=== PATIENT | female | born 1985 | race African-American/Black ===

== ENCOUNTER 2018-08-30 21:23 | Emergency (ER) | payer OTHER ==
--- OUTSIDE RECORDS SUMMARY | 2018-08-30 21:24 | XMS REPORT ---
:1985 [facility] Address [address] [place] [address] [address] [place] [address] Care Team Providers Name Role Phone Unavailable Unavailable Unavailable Problems This patient has no known problems. Allergies, Adverse Reactions, Alerts This patient has no known allergies or adverse reactions. Medications This patient has no known medications.
[2018-08-31] MEDS ORDERED: LIDOCAINE 1% MPF 2 ML AMPULE ONE (00:49)
[2018-08-31] MEDS ORDERED: ONDANSETRON 4 MG (ODT) TAB ONE (00:49)
[2018-08-31] MEDS ORDERED: CEFTRIAXONE 1000 MG/VIAL ONE (00:49)
--- NOTE | 2018-08-31 01:13 | EDPHYS ---
Physician Documentation [facility] Name: Breana Lanier Age: 33 yrs Sex: Female : 1985 Arrival Date: 08/30/2018 Time: 21:23 Bed 9 Private MD: ED Physician Kain Murrell HPI: 08/31 01:00 This 33 yrs old Black Female presents to ER via Ambulatory with complaints of Possible pm1 Dehydration. 01:00 The patient presents with urinary symptoms, dysuria. Onset: The symptoms/episode pm1 began/occurred 1 week(s) ago. Modifying factors: The symptoms are alleviated by nothing, the symptoms are aggravated by urinating. Severity of symptoms: in the emergency department the symptoms are unchanged. The patient has experienced similar episodes in the past, multiple times. The patient has been recently seen at an urgent care, today, for similar complaints, labs were performed, was given a prescription for antibiotics. Patient was seen at urgent care and told that she might be dehydrated, so she presented to the ER. patient able to eat and drink.. 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 - Social history:: Smoking status: Patient/guardian denies using tobacco. - Ebola Screening: : Patient negative for fever greater than or equal to 101.5 degrees Fahrenheit, and additional compatible Ebola Virus Disease symptoms Patient denies exposure to infectious person Patient denies travel to an Ebola-affected area in the 21 days before illness onset No symptoms or risks identified at this time. ROS: 08/31 01:00 Positive for urinary symptoms. pm1 Constitutional: Negative for fever, chills, and weight loss, Eyes: Negative for injury, pain, redness, and discharge, ENT: Negative for injury, pain, and discharge, Neck: Negative for injury, pain, and swelling, Cardiovascular: Negative for chest pain, palpitations, and edema, Respiratory: Negative for shortness of breath, cough, wheezing, and pleuritic chest pain, Abdomen/GI: Negative for abdominal pain, nausea, vomiting, diarrhea, and constipation, Back: Negative for injury and pain, MS/Extremity: Negative for injury and deformity, Skin: Negative for injury, rash, and discoloration, Neuro: Negative for headache, weakness, numbness, tingling, and seizure. Exam: 01:00 Constitutional: This is a well developed, well nourished patient who is awake, alert, pm1 and in no acute distress. Head/Face: Normocephalic, atraumatic. Eyes: Pupils equal round and reactive to light, extra-ocular motions intact. Lids and lashes normal. Conjunctiva and sclera are non-icteric and not injected. Cornea within normal limits. Periorbital areas with no swelling, redness, or edema. ENT: Nares patent. No nasal discharge, no septal abnormalities noted. Tympanic membranes are normal and external auditory canals are clear. Oropharynx with no redness, swelling, or masses, exudates, or evidence of obstruction, uvula midline. Mucous membranes moist. Neck: Trachea midline, no thyromegaly or masses palpated, and no cervical lymphadenopathy. Supple, full range of motion without nuchal rigidity, or vertebral point tenderness. No Meningismus. Chest/axilla: Normal chest wall appearance and motion. Nontender with no deformity. No lesions are appreciated. Cardiovascular: Regular rate and rhythm with a normal S1 and S2. No gallops, murmurs, or rubs. Normal PMI, no JVD. No pulse deficits. Respiratory: Lungs have equal breath sounds bilaterally, clear to auscultation and percussion. No rales, rhonchi or wheezes noted. No increased work of breathing, no retractions or nasal flaring. Abdomen/GI: Soft, non-tender, with normal bowel sounds. No distension or tympany. No guarding or rebound. No evidence of tenderness throughout. Back: No spinal tenderness. No costovertebral tenderness. Full range of motion. Skin: Warm, dry with normal turgor. Normal color with no rashes, no lesions, and no evidence of cellulitis. MS/ Extremity: Pulses equal, no cyanosis. Neurovascular intact. Full, normal range of motion. 01:00 Neuro: Orientation: is normal, Motor: moves all fours. Vital Signs: 08/30 21:56 BP 114 / 75; Pulse 97; Resp 17; Temp 97.5; Pulse Ox 100% on R/A; Weight 71.67 kg; aj Height 5 ft. 1 in. (154.94 cm); 08/31 01:22 Pulse 82; Resp 16; Pulse Ox 100% on R/A; tl3 08/30 21:56 Body Mass Index 29.85 (71.67 kg, 154.94 cm) aj MDM: 08/30 23:29 Patient medically screened. pm1 08/31 01:12 Data reviewed: vital signs. Data interpreted: Pulse oximetry: on room air is 100 %. pm1 Interpretation: normal. Counseling: I had a detailed discussion with the patient and/or guardian regarding: the historical points, exam findings, and any diagnostic results supporting the discharge/admit diagnosis, the need for outpatient follow up, to return to the emergency department if symptoms worsen or persist or if there are any questions or concerns that arise at home. 08/31 00:55 Order name: Urine Dipstick--Ancillary (enter results); Complete Time: 06:42 ar5 08/31 00:30 Order name: PO challenge; Complete Time: 00:49 pm1 Administered Medications: 00:49 Drug: Rocephin (cefTRIAXone) 1 grams Route: IM; Site: left gluteus; 00:49 Drug: Zofran 4 mg Route: PO; Disposition: 06:41 Co-signature as Attending Physician, Kain Murrell MD Available for consultation at ps1 all times. . Disposition: 08/31/18 01:13 Discharged to Home. Impression: Urinary tract infection, site not specified. - Condition is Stable. - Discharge Instructions: Urinary Tract Infection, Adult. - Prescriptions for promethazine 25 mg Oral Tablet - take 1 tablet by ORAL route every 6 hours As needed; 20 tablet. - Medication Reconciliation Form, Thank You Letter, Antibiotic Education, Prescription Opioid Use, Work release form form. - Follow up: Emergency Department; When: As needed; Reason: Worsening of condition. Follow up: Private Physician; When: 2 - 3 days; Reason: Recheck today's complaints, Continuance of care, Re-evaluation by your physician. - Problem is new. - Symptoms have improved. Signatures: Dispatcher [employer] Constance Arora RN RN Ashley Soria RN RN fc Mohamud Mendoza NP CITY ENGINEER pm1 Kain Murrell MD MD ps1 [place], ABDI RN tl3 Corrections: (The following items were deleted from the chart) 01: 01:13 08/31/2018 01:13 Discharged to Home. Impression: Urinary tract infection, site tl3 not specified. Condition is Stable. Forms are Medication Reconciliation Form, Thank You Letter, Antibiotic Education, Prescription Opioid Use. Follow up: Emergency Department; When: As needed; Reason: Worsening of condition. Follow up: Private Physician; When: 2 - 3 days; Reason: Recheck today's complaints, Continuance of care, Re-evaluation by your physician. Problem is new. Symptoms have improved. pm1
--- NOTE | 2018-08-31 01:13 | ER ---
Nurse's Notes [facility] Name: Breana Lanier Age: 33 yrs Sex: Female : 1985 Arrival Date: 08/30/2018 Time: 21:23 Bed 9 Private MD: Diagnosis: Urinary tract infection, site not specified Presentation: 08/30 21:54 Presenting complaint: Patient states: DX with UTI at Urgent Care and told she was aj dehydrated and to go home and drink water. Patient is able to tolerate liquids at home, but was concerned about her dehydration. Transition of care: patient was not received from another setting of care. Onset of symptoms was August 30, 2018. Risk Assessment: Do you want to hurt yourself or someone else? Patient reports no desire to harm self or others. Initial Sepsis Screen: Does the patient meet any 2 criteria? No. Patient's initial sepsis screen is negative. Does the patient have a suspected source of infection? No. Patient's initial sepsis screen is negative. Care prior to arrival: None. 21:54 Method Of Arrival: Ambulatory 21:54 Acuity: BRYAN 4 aj Triage Assessment: 21:56 General: Appears in no apparent distress. comfortable, Behavior is calm, cooperative, aj appropriate for age. Pain: Denies pain. Neuro: Level of Consciousness is awake, alert, obeys commands, Oriented to person, place, time, situation, Appropriate for age. Respiratory: Airway is patent Respiratory effort is even, unlabored, Respiratory pattern is regular, symmetrical. Derm: Skin is intact, is healthy with good turgor, Skin is pink, warm \T\ dry. normal. 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 - Social history:: Smoking status: Patient/guardian denies using tobacco. - Ebola Screening: : Patient negative for fever greater than or equal to 101.5 degrees Fahrenheit, and additional compatible Ebola Virus Disease symptoms Patient denies exposure to infectious person Patient denies travel to an Ebola-affected area in the 21 days before illness onset No symptoms or risks identified at this time. Screenin:24 Abuse screen: Denies threats or abuse. Nutritional screening: No deficits noted. fc Tuberculosis screening: No symptoms or risk factors identified. Fall Risk None identified. Assessment: 23:24 General: Appears comfortable, slender, Behavior is calm, cooperative, appropriate for age. Pain: Denies pain. Neuro: Level of Consciousness is awake, alert, obeys commands, Oriented to person, place, time, situation. Cardiovascular: No deficits noted. Respiratory: No deficits noted. GI: Abdomen is flat, Bowel sounds present X 4 quads. Abd is soft and non tender X 4 quads. Reports nausea. : No deficits noted. EENT: No deficits noted. Derm: Skin is pink, warm \T\ dry. Musculoskeletal: Circulation, motion, and sensation intact. Capillary refill < 3 seconds, Range of motion: intact in all extremities. 08/31 00:14 Reassessment: Mohamud NIETO in to see and examine pt. 00:49 Reassessment: Medications given. Pt pending GINA perrin. Vital Signs: 08/30 21:56 BP 114 / 75; Pulse 97; Resp 17; Temp 97.5; Pulse Ox 100% on R/A; Weight 71.67 kg; aj Height 5 ft. 1 in. (154.94 cm); 08/31 01:22 Pulse 82; Resp 16; Pulse Ox 100% on R/A; tl3 08/30 21:56 Body Mass Index 29.85 (71.67 kg, 154.94 cm) ED Course: 08/30 21:23 Patient arrived in ED. ds1 21:55 Triage completed. aj 21:56 Arm band placed on left wrist. Patient placed in waiting room, Patient notified of wait aj time. 23:24 Patient has correct armband on for positive identification. Bed in low position. Call light in reach. 23:29 Mohamud Mendoza NP is PHCP. pm1 23:29 Kain Murrell MD is Attending Physician. pm1 08/31 01:21 No provider procedures requiring assistance completed. Patient did not have IV access tl3 during this emergency room visit. Administered Medications: 00:49 Drug: Rocephin (cefTRIAXone) 1 grams Route: IM; Site: left gluteus; 00:49 Drug: Zofran 4 mg Route: PO; Outcome: 01:13 Discharge ordered by . pm1 01:22 Discharged to home ambulatory. tl3 01:22 Condition: stable 01:22 Discharge instructions given to patient, Instructed on discharge instructions, follow up and referral plans. Demonstrated understanding of instructions, follow-up care, medications, Prescriptions given X 1. 01:23 Patient left the ED. tl3 Signatures: Constance Pool RN Ashley Casey RN RN fc [place], Demi ds1 Mohamud Mendoza, FLOW MATCH SOFA CUTTER FLOW MATCH SOFA CUTTER pm1 China Wayne RN RN tl3
[2018-08-31 01:18] LABS: Urine Blood TRACE (NEG); Urine Glucose NEGATIVE (NEG); Urine Protein 1+ (NEG); Urine Specific Gravity 1.025 (1.005-1.030)
== END 2018-08-31 01:23 | disposition home or self-care (01) ==
LOC: ER 21:23
DX: N39.0 Urinary tract infection, site not specified (principal)
CPT/HCPCS: 81003; 96372; 99283; J2001